=== PATIENT | male | born 1995 | race Two or more races ===

== ENCOUNTER 2019-01-04 18:14 | Emergency (ER) | payer MEDICAID ==
[~2019-01-04] VITALS: Ht 175.3 cm; Wt 70.8 kg
[2019-01-04] MEDS ORDERED: IBUPROFEN 600 MG TABLET PO ONE (18:46)
[2019-01-04] MEDS: IBUPROFEN 600 MG TABLET PO ONE (18:56)
--- NOTE | 2019-01-04 19:54 | NUR ---
Patient discharged to home in stable condition. Written and verbal after care instructions given. Patient verbalizes understanding of instruction AND RX. PT AMBULATED OUT WITH A STEADY GAIT. VSS. NAD NOTED. RESP EVEN AND UNLABORED. PT'S MOTHER IS AT THE BEDSIDE AND IS DRIVING PT HOME.
[2019-01-04 19:56] VITALS: BP 120/78
== END 2019-01-04 19:57 | disposition home or self-care (01) ==
LOC: ER 18:17
DX: J20.9 Acute bronchitis, unspecified (principal)
CPT/HCPCS: 71045-TC

== ENCOUNTER 2019-04-09 22:36 | Emergency (ER) | payer MEDICAID ==
[2019-04-09] MEDS ORDERED: LIDOCAINE HCL/PF 1% 30 ML SDV ONE (23:38)
[2019-04-10] MEDS ORDERED: IBUPROFEN 400 MG TABLET ONE (00:49)
[2019-04-10] MEDS ORDERED: IBUPROFEN 400 MG TABLET PO ONE (01:00)
== END 2019-04-10 00:57 | disposition home or self-care (01) ==
DX: S60.131A Contusion of right middle finger with damage to nail, initial encounter (principal); W23.0XXA Caught, crushed, jammed, or pinched between moving objects, initial encounter; Y93.89 Activity, other specified; Y92.89 Other specified places as the place of occurrence of the external cause; Y99.8 Other external cause status

== ENCOUNTER 2019-06-05 00:47 | Emergency (ER) | payer MEDICAID ==
[~2019-06-05] VITALS: Ht 175.3 cm; Wt 88.9 kg
--- NOTE | 2019-06-05 00:50 | NUR ---
PT BIBFAMILY C/O ABD PAIN W/ N/V/D X TODAY. PT AXO4. RESPIRATIONS EVEN AND UNLABORED. PT AMBULATORY WITH STEADY GAIT. PT PUT ON THE CARIDAC MONITOR AND PULSE OX. PENDING EVAL FROM LIZABETH LEE.
[2019-06-05] MEDS ORDERED: KETOROLAC TROMETHAMINE 15 MG/ML VIAL ONE (01:11)
--- NOTE | 2019-06-05 01:12 | NUR ---
18G LAC STARTED, LABS DRAWN AND SENT WITH SANDING MACHINE TENDER.
[2019-06-05 01:19] LABS: BASOPHILS % (AUTO) 0.5 % (0.0-2.0); EOSINOPHILS % (AUTO) 1.7 % (0.0-6.0); HEMATOCRIT 46 % (39-51); HEMOGLOBIN 15.6 g/dL (13.5-17.5); LYMPHOCYTES # (AUTO) 1.9 /CMM (0.8-4.8); LYMPHOCYTES % (AUTO) 24.7 % (20.0-44.0); MEAN CORPUSCULAR HGB CONC 34 g/dl (31.0-36.0); MEAN CORPUSCULAR VOLUME 82 fL (80-96); MONOCYTES # (AUTO) 1.1 /CMM (0.1-1.30); MONOCYTES % (AUTO) 14.9 % (2.0-12.0); NEUTROPHILS # (AUTO) 4.4 /CMM (1.8-8.9); NEUTROPHILS % (AUTO) 58.2 % (43.0-81.0); PLATELET COUNT (AUTO) 242 /CMM (150-450); RED BLOOD CELL COUNT(AUTO) 5.57 MIL/uL (4.5-6.0); WHITE BLOOD COUNT (AUTO) 7.5 K/uL (4.3-11.0)
[2019-06-05] MEDS ORDERED: IV NS 0.9% 1,000 ML BAG IV ONE (01:30)
[2019-06-05] MEDS ORDERED: KETOROLAC TROMETHAMINE INJ 30 MG/ML VIAL IV ONE (01:30)
[2019-06-05 01:32] LABS: CALCIUM, SERUM 9.3 mg/dL (8.5-10.1); CREATININE 1.3 mg/dL (0.6-1.3); POTASSIUM 3.4 mmol/L (3.5-5.1)
[2019-06-05 01:48] LABS: ALBUMIN 3.7 g/dL (3.4-5.0); BILIRUBIN,DIRECT 0.1 mg/dL (0.0-0.2); BILIRUBIN,TOTAL 0.3 mg/dL (0.2-1.0)
[2019-06-05] MEDS ORDERED: IV NS 0.9% 250 ML IV ONE (02:02)
[2019-06-05] MEDS ORDERED: IOHEXOL-300 100 ML VIAL IV ONE (02:02)
[2019-06-05] MEDS ORDERED: CT SWABBABLE VALVE TRANS SET 1 EA INFUS.SET MC ONE (02:02)
--- NOTE | 2019-06-05 02:29 | NUR ---
PT COMPLAINING OF PAIN, ER MD AWARE.
[2019-06-05] MEDS ORDERED: DICYCLOMINE HCL 10 MG CAPSULE PO ONE ×2 (02:38→03:00)
[2019-06-05] MEDS ORDERED: CIPROFLOXACIN HCL 500 MG TABLET ONE (02:49)
[2019-06-05] MEDS ORDERED: METRONIDAZOLE 500 MG TABLET ONE (02:50)
[2019-06-05] MEDS ORDERED: CIPROFLOXACIN HCL 250 MG TABLET PO ONE (03:00)
[2019-06-05] MEDS ORDERED: METRONIDAZOLE 500 MG TABLET PO ONE (03:00)
--- NOTE | 2019-06-05 03:09 | NUR ---
IV removed. Catheter intact and site benign. Pressure and 4x4 applied to site. No bleeding noted. Patient discharged to home in stable condition. Written and verbal after care instructions given. Patient verbalizes understanding of instruction.
[2019-06-05 03:10] VITALS: BP 140/80
== END 2019-06-05 03:11 | disposition home or self-care (01) ==
LOC: ER 00:51
DX: K52.9 Noninfective gastroenteritis and colitis, unspecified (principal)
CPT/HCPCS: 36415; 74177; 80048; 80076; 83690; 85025; 96361; 96374; 99284; J1885; J7030; J7050; Q9967

== ENCOUNTER 2019-09-02 00:06 | Emergency (ER) | payer MEDICAID ==
[~2019-09-02] VITALS: Ht 175.3 cm; Wt 80.7 kg
[2019-09-02 00:06] VITALS: BP 138/76
--- NOTE | 2019-09-02 00:36 | NUR ---
R HAND XRAY DONE.
== END 2019-09-02 01:05 | disposition home or self-care (01) ==
LOC: ER 00:06
DX: S60.221A Contusion of right hand, initial encounter (principal); F10.10 Alcohol abuse, uncomplicated; F17.200 Nicotine dependence, unspecified, uncomplicated; Y90.9 Presence of alcohol in blood, level not specified; X58.XXXA Exposure to other specified factors, initial encounter; Y93.71 Activity, boxing; Y92.89 Other specified places as the place of occurrence of the external cause; Y99.8 Other external cause status
CPT/HCPCS: 73130-TC

== ENCOUNTER 2020-05-14 03:45 | Emergency (ER) | payer MEDICAID ==
[~2020-05-14] VITALS: Ht 172.7 cm; Wt 81.6 kg
[2020-05-14 03:49] VITALS: BP 128/76
== END 2020-05-14 04:00 | disposition home or self-care (01) ==
LOC: ER 03:47
DX: L02.416 Cutaneous abscess of left lower limb (principal); F17.200 Nicotine dependence, unspecified, uncomplicated

== ENCOUNTER 2020-09-10 02:28 | Emergency (ER) | payer MEDICAID ==
[~2020-09-10] VITALS: Ht 172.7 cm; Wt 86.2 kg
--- NOTE | 2020-09-10 02:57 | NUR ---
PT REFUSED BLOOD TEST. MADE AWARE
--- NOTE | 2020-09-10 03:27 | NUR ---
PT WAS TAKEN TO CT
--- NOTE | 2020-09-10 03:35 | NUR ---
BACK FROM CT
[2020-09-10] MEDS ORDERED: IBUP-1955 PO (04:12)
[2020-09-10] MEDS ORDERED: TRAM50TA2 PO (04:13)
--- NOTE | 2020-09-10 04:28 | NUR ---
pt is medically stable for d.c, IV removed. Catheter intact and site benign. Pressure and 4x4 applied to site. No bleeding noted.Patient discharged to home in stable condition. rx and Written and verbal after care instructions given. Patient verbalizes understanding of instruction.
[2020-09-10 04:29] VITALS: BP 128/85
== END 2020-09-10 04:29 | disposition home or self-care (01) ==
LOC: ER 02:29
DX: S20.211A Contusion of right front wall of thorax, initial encounter (principal); S39.81XA Other specified injuries of abdomen, initial encounter; F17.200 Nicotine dependence, unspecified, uncomplicated; W50.1XXA Accidental kick by another person, initial encounter; Y93.89 Activity, other specified; Y92.89 Other specified places as the place of occurrence of the external cause; Y99.8 Other external cause status
CPT/HCPCS: 71250-TC